=== PATIENT | male | born 1965 | race Caucasian/White ===

== ENCOUNTER 2021-03-12 06:05 | Day surgery (SDC) | payer BC ==
[~2021-03-12 06:05] MED LIST: Acetaminophen 325 MG Tab PO SCH; Lactated Ringers 1,000 ML IV SCH; Lidocaine 1%/Sod Bicarbonate in NS 8.4% 1 ML Syringe IDERM PRN; Pregabalin 25 MG Cap PO SCH; Sodium Chloride 0.9% 10 ML Syringe FLUSH PRN; oxyCODONE ER 10 MG TAB.ER PO SCH
[2021-03-12] MEDS ORDERED: Vancomycin 1 GM SDV ONE (06:14)
[2021-03-12] MEDS ORDERED: EPINEPHrine 1 MG/ML SDV ONE (06:20)
[2021-03-12] MEDS ORDERED: Ropivacaine 0.5% 5 MG/ML 30 ML SDV ONE (06:20)
[2021-03-12] MEDS ORDERED: Propofol 200 MG/20 ML SDV ONE (06:21)
[2021-03-12] MEDS ORDERED: Midazolam 1 MG/ML 2 ML SDV ONE (06:22)
[2021-03-12] MEDS ORDERED: fentaNYL 100 MCG/2 ML SDV ONE (06:22)
[2021-03-12] MEDS ORDERED: Morphine 8 MG, EPINEPHrine 0.3 MG, Cefuroxime 750 MG, Ketorolac 30 MG, Sodium Chloride ... PRN ×5 (06:23)
--- NOTE | 2021-03-12 06:36 | PCM.PREANE ---
Preanesthetic Assessment - Procedure Proposed Procedure: Left total knee arthroplasty with right knee steroid injection - Anesthesia/Transfusion/Family Hx Anesthesia History: Prior Anesthesia Without Reaction Family History of Anesthesia Reaction: No Transfusion History: No Prior Transfusion(s) Intubation History: Unknown - Review of Systems General: No Symptoms Pulmonary: No Symptoms Cardiovascular: No Symptoms Gastrointestinal: No Symptoms Neurological: Numbness (Bilateral hands go numb when driing, patient stated that he has had it his entire life), Tingling - Physical Assessment NPO Status Date: 03/11/21 NPO Status Time: 22:30 (central time) Vital Signs: 127/86 HR 68 97.9 RR 16 98 Height: 1.83 m Weight: 103.7 kg ASA Class: 2 Mental Status: Alert & Oriented x3 Airway Class: Mallampati = 1 Dentition: Reports: Normal Dentition Thyro-Mental Finger Breadths: 3 Mouth Opening Finger Breadths: 3 ROM/Head Extension: Full Lungs: Clear to Auscultation, Normal Respiratory Effort Cardiovascular: Regular Rate, Regular Rhythm, Murmurs (New onset murmur- discussed with Dr Craven and plan to cancel today for patient to get evaluated. Very prominent murmur heard during ascultation.) - Imaging/EKG Impressions: 02/27/21 EKG SB HR 57 Chest xray 02/27/21: WNL - Allergies Allergies/Adverse Reactions: Allergies Allergy/AdvReac Type Severity Reaction Status Date / Time No Known Allergies Allergy Verified 03/09/21 15:51 - Acknowledgements Additional Comments: New prominent murmur heard on exam. Plan to cancel for today and reschedule after an echo and cardiology assessment. PreAnesthesia Questionnaire HEENT History: Reports: None Cardiovascular History: Reports: None Respiratory History: Reports: None, Other (See Below) Other Respiratory History: History of COVID Gastrointestinal History: Reports: GERD Genitourinary History: Reports: Other (See Below) Other Genitourinary History: flank pain [employer] History: Reports: None Musculoskeletal History: Reports: Osteoarthritis Neurological History: Reports: None Psychiatric History: Reports: None Endocrine/Metabolic History: Reports: Hypothyroidism Other Endocrine/Metabolic History: Gout Hematologic History: Reports: None Immunologic History: Reports: None Oncologic (Cancer) History: Reports: None Dermatologic History: Reports: None - Infectious Disease History Infectious Disease History: Reports: Novel Coronavirus - Past Surgical History Head Surgeries/Procedures: Reports: None HEENT Surgical History: Reports: None Cardiovascular Surgical History: Reports: None Respiratory Surgical History: Reports: None GI Surgical History: Reports: None Male Surgical History: Reports: Vasectomy Endocrine Surgical History: Reports: None Neurological Surgical History: Reports: None Musculoskeletal Surgical History: Reports: Other (See Below) Other Musculoskeletal Surgeries/Procedures:: Knee scope Dermatological Surgical History: Reports: None - SUBSTANCE USE Tobacco Use Status *Q: Former Tobacco User (quit chewing 2005) Second Hand Smoke Exposure: No Days Per Week of Alcohol Use: 7 Number of Drinks Per Day: 3 Total Drinks Per Week: 21 Recreational Drug Use History: No - HOME MEDS Home Medications: Home Meds Cholecalciferol (Vitamin D3) [Vitamin D3] 5,000 unit PO DAILY 03/09/21 [History] Docusate Sodium [Stool Softener] 100 mg PO BID 03/09/21 [History] Levothyroxine Sodium [Levothyroxine] 200 mcg PO DAILY 03/09/21 [History] Multivitamin 1 tab PO DAILY 03/09/21 [History] allopurinoL [Zyloprim] 100 mg PO DAILY 03/09/21 [History] Aspirin [Aspirin EC] 325 mg PO BID #60 tab 03/12/21 [Rx] Cyclobenzaprine [Flexeril] 10 mg PO BID PRN #20 tab 03/12/21 [Rx] Famotidine 20 mg PO BID #60 tab 03/12/21 [Rx] Omeprazole 20 mg PO DAILY #30 tablet. 03/12/21 [Rx] oxyCODONE 5 - 10 mg PO Q4H PRN #40 tab 03/12/21 [Rx] - CURRENT (IN HOUSE) MEDS Current Meds: Current Medications Acetaminophen (Acetaminophen 325 Mg Tab) 975 mg PO ONETIME KRISTEL Stop: 03/12/21 16:00 Morphine Sulfate 8 mg/Epinephrine HCl 0.3 mg/Cefuroxime Sodium 750 mg/Ketorolac Tromethamine 30 mg/Sodium Chloride 7.9 ml 0 mg .XX ASDIRECTED PRN PRN Reason: Pain Lactated Ringer's (Ringers, Lactated) 1,000 mls @ 125 mls/hr IV ASDIRECTED KRISTEL Stop: 03/12/21 23:00 Lidocaine/Sodium Bicarbonate (Lidocaine 1%/Sod Bicarbonate In Ns 8.4% 1 Ml Syringe) 0.25 ml IDERM ONETIME PRN PRN Reason: Prior to IV Start Stop: 03/12/21 18:00 Oxycodone HCl (Oxycodone Er 10 Mg Tab.Er) 10 mg PO ONETIME KRISTEL Stop: 03/12/21 16:00 Pregabalin (Pregabalin 25 Mg Cap) 50 mg PO ONETIME KRISTEL Stop: 03/12/21 16:00 Sodium Chloride (Sodium Chloride 0.9% 10 Ml Syringe) 10 ml FLUSH ASDIRECTED PRN PRN Reason: Keep Vein Open Stop: 03/12/21 18:00 Discontinued Medications Epinephrine HCl (Epinephrine 1 Mg/Ml Sdv) Confirm Administered Dose 1 mg .ROUTE .STK-MED ONE Stop: 03/12/21 06:21 Fentanyl (Fentanyl 100 Mcg/2 Ml Sdv) Confirm Administered Dose 100 mcg .ROUTE .STK-MED ONE Stop: 03/12/21 06:23 Midazolam HCl (Midazolam 1 Mg/Ml 2 Ml Sdv) Confirm Administered Dose 2 mg .ROUTE .STK-MED ONE Stop: 03/12/21 06:23 Propofol (Propofol 200 Mg/20 Ml Sdv) Confirm Administered Dose 400 mg .ROUTE .STK-MED ONE Stop: 03/12/21 06:22 Ropivacaine (Ropivacaine 0.5% 5 Mg/Ml 30 Ml Sdv) Confirm Administered Dose 30 ml .ROUTE .STK-MED ONE Stop: 03/12/21 06:21 Tranexamic Acid (Tranexamic Acid 1,000 Mg/10 Ml Amp) Confirm Administered Dose 1,000 mg .ROUTE .STK-MED ONE Stop: 03/12/21 06:15 Vancomycin HCl (Vancomycin 1 Gm Sdv) Confirm Administered Dose 1 gm .ROUTE .STK- MED ONE Stop: 03/12/21 06:15
[2021-03-12] MEDS ORDERED: Bupivacaine 0.25% 10 ML SDV ONE (06:50)
[2021-03-12] MEDS ORDERED: Triamcinolone Acetonide 40 MG/ML 1 ML SDV ONE (06:50)
== END 2021-03-12 07:25 | disposition home or self-care (01) ==
LOC: JD.SDS 06:05
PROVIDERS: ATTEND Orthopaedic Surgery
DX: M19.90 Unspecified osteoarthritis, unspecified site (principal); Z53.09 Procedure and treatment not carried out because of other contraindication; E03.9 Hypothyroidism, unspecified
CPT/HCPCS: J0171; J2250; J2704; J2795; J3010; J3301; J3370; J3490; J7120

== ENCOUNTER 2021-09-05 06:45 | Day surgery (SDC) | payer BC ==
[~2021-09-05 06:45] MED LIST changes: +EPINEPHrine 1 MG/ML SDV ONE; +Lidocaine 1% 0 ML ONE; +Midazolam 1 MG/ML 2 ML SDV ONE; +Ondansetron 4 MG/2 ML SDV ONE; +Propofol 200 MG/20 ML SDV ONE; +Ropivacaine 0.5% 5 MG/ML 30 ML SDV ONE; +Sodium Chloride 0.9% 10 ML Syringe FLUSH SCH; +ceFAZolin 1 GM Vial ONE
[2021-09-05] MEDS ORDERED: Bupivacaine 0.25% 10 ML SDV ONE (06:49)
[2021-09-05] MEDS ORDERED: Midazolam 1 MG/ML 2 ML SDV ONE (07:23)
[2021-09-05] MEDS ORDERED: Lactated Ringers 1,000 ML ONE ×2 (07:33→08:08)
[2021-09-05] MEDS ORDERED: Propofol 200 MG/20 ML SDV ONE ×2 (07:51→08:20)
[2021-09-05] MEDS: Morphine 8 MG, EPINEPHrine 0.3 MG, Cefuroxime 750 MG, Ketorolac 30 MG, Sodium Chloride ... PRN ×10 (08:00→08:26)
[2021-09-05] MEDS: Triamcinolone Acetonide 40 MG/ML 1 ML SDV ONE ×3 (08:00→08:52)
[2021-09-05] MEDS: Vancomycin 1 GM SDV ONE ×2 (08:01→08:34)
[2021-09-05] MEDS ORDERED: Ketamine 500 mg/10 ML MDV ONE (08:21)
[2021-09-05] MEDS ORDERED: Lidocaine 1% 4 ML ONE (08:28)
[2021-09-05] MEDS ORDERED: HYDROmorphone 0.5 MG/0.5 ML Syringe IVPUSH PRN (09:08)
[2021-09-05] MEDS ORDERED: Ondansetron 4 MG/2 ML SDV IVPUSH PRN (09:08)
[2021-09-05] MEDS ORDERED: fentaNYL 100 MCG/2 ML SDV IVPUSH PRN (09:08)
[2021-09-05] MEDS ORDERED: EPINEPHrine 1 MG/ML SDV ONE (09:32)
[2021-09-05] MEDS ORDERED: Ropivacaine 0.5% 5 MG/ML 30 ML SDV ONE (09:32)
[2021-09-05] MEDS ORDERED: oxyCODONE 5 MG Tab PO ONE (11:14)
[2021-09-05] MEDS ORDERED: Lidocaine 1% 2 ML ONE (11:52)
== END 2021-09-05 12:13 | disposition home or self-care (01) ==
LOC: JD.SDS 06:45
PROVIDERS: ATTEND Orthopaedic Surgery
DX: M17.0 Bilateral primary osteoarthritis of knee (principal); E03.9 Hypothyroidism, unspecified; E66.9 Obesity, unspecified; I35.0 Nonrheumatic aortic (valve) stenosis; I71.2 Thoracic aortic aneurysm, without rupture; Z95.2 Presence of prosthetic heart valve; Z98.890 Other specified postprocedural states; Z87.891 Personal history of nicotine dependence; Z79.82 Long term (current) use of aspirin; Z79.890 Hormone replacement therapy; Z79.899 Other long term (current) drug therapy
CPT/HCPCS: 0055T; 20610; 27447; 73560; 97110; 97116; 97162; 97530; A9270; C1713; C1776; J0171; J0690; J0697; J1885; J2250; J2270; J2370; J2405; J2704; J2795; J3301; J3370; J3490; J7120; 01402; 64447; 76942

== ENCOUNTER 2021-12-24 06:25 | Day surgery (SDC) | payer BC ==
[~2021-12-24 06:25] MED LIST changes: -EPINEPHrine 1 MG/ML SDV ONE; -Lidocaine 1% 0 ML ONE; -Midazolam 1 MG/ML 2 ML SDV ONE; +Morphine 8 MG, EPINEPHrine 0.3 MG, Cefuroxime 750 MG, Ketorolac 30 MG, Sodium Chloride ... PRN; -Ondansetron 4 MG/2 ML SDV ONE; -Propofol 200 MG/20 ML SDV ONE; -Ropivacaine 0.5% 5 MG/ML 30 ML SDV ONE; +Vancomycin 1 GM SDV ONE; -ceFAZolin 1 GM Vial ONE
[2021-12-24] MEDS ORDERED: Lactated Ringers 1,000 ML ONE (06:41)
[2021-12-24] MEDS ORDERED: Propofol 200 MG/20 ML SDV ONE (06:41)
[2021-12-24] MEDS ORDERED: Midazolam 1 MG/ML 2 ML SDV ONE ×2 (06:41→07:46)
[2021-12-24] MEDS ORDERED: fentaNYL 100 MCG/2 ML SDV ONE (06:41)
[2021-12-24] MEDS ORDERED: ceFAZolin 2 GM Vial ONE (06:41)
[2021-12-24] MEDS ORDERED: Ropivacaine 0.5% 5 MG/ML 30 ML SDV ONE (06:44)
[2021-12-24] MEDS ORDERED: EPINEPHrine 1 MG/ML SDV ONE (06:44)
[2021-12-24] MEDS ORDERED: Phenylephrine HCl In 0.9% NaCl 1 MG/10 ML Vial ONE (07:45)
[2021-12-24] MEDS ORDERED: fentaNYL 100 MCG/2 ML SDV IVPUSH PRN (08:05)
[2021-12-24] MEDS ORDERED: Ondansetron 4 MG/2 ML SDV IVPUSH PRN (08:05)
[2021-12-24] MEDS ORDERED: HYDROmorphone 0.5 MG/0.5 ML Syringe IVPUSH PRN (08:05)
[2021-12-24] MEDS ORDERED: oxyCODONE 5 MG Tab PO PRN (08:54)
[2021-12-24] MEDS ORDERED: Cyclobenzaprine 10 MG Tab PO ONE (09:30)
== END 2021-12-24 12:35 | disposition home or self-care (01) ==
LOC: JD.SDS 06:25
PROVIDERS: ATTEND Orthopaedic Surgery
DX: M17.11 Unilateral primary osteoarthritis, right knee (principal); E66.9 Obesity, unspecified; Z95.2 Presence of prosthetic heart valve; G47.33 Obstructive sleep apnea (adult) (pediatric); E03.9 Hypothyroidism, unspecified; Z79.890 Hormone replacement therapy; Z79.899 Other long term (current) drug therapy; Z98.890 Other specified postprocedural states; Z87.891 Personal history of nicotine dependence; Z79.82 Long term (current) use of aspirin; Z68.31 Body mass index [BMI] 31.0-31.9, adult
CPT/HCPCS: 0055T; 27447; 73560; 97110; 97161; A9270; C1713; C1776; J0171; J0690; J0697; J1170; J1885; J2250; J2270; J2704; J2795; J3010; J3370; J7120; 01402; 64450; 76942